=== PATIENT | female | born 1940 | race Caucasian/White ===

== ENCOUNTER 2025-05-09 08:13 | Day surgery (SDC) | payer MEDICARE, OTHER ==
[2025-05-07 12:09] VITALS: BMI 25.7
[2025-05-09] MEDS ORDERED: CEFAZOLIN 2 GM VIAL ONE (09:33)
[2025-05-09] MEDS ORDERED: Bupivacaine/Epinephrine 0.25% 30 ML VIAL ONE (09:33)
[2025-05-09] MEDS ORDERED: PROPOFOL 20 ML ONE (09:37)
[2025-05-09] MEDS ORDERED: Lidocaine 1% PF 5 ML VIAL ONE (09:38)
[2025-05-09] MEDS ORDERED: Rocuronium Bromide 10 MG/ML (10ML VIAL) ONE (09:38)
[2025-05-09] MEDS ORDERED: SUGAMMADEX SODIUM 200 MG/2 ML VIAL ONE (10:57)
[2025-05-09] MEDS ORDERED: Ondansetron PF 4 MG/2 ML Vial ONE (10:57)
== END 2025-05-09 12:48 | disposition home or self-care (01) ==
LOC: CSHSDC 08:13
PROVIDERS: ATTEND Surgery
PROC: 0FT44ZZ Resection of Gallbladder, Percutaneous Endoscopic Approach (ICD-10-PCS; principal; 2025-05-09)
DX: K80.12 Calculus of gallbladder with acute and chronic cholecystitis without obstruction (principal); I10 Essential (primary) hypertension; E78.5 Hyperlipidemia, unspecified; Z79.899 Other long term (current) drug therapy
CPT/HCPCS: 47562; C9776; 88304; 88341; 88342; C1889; J2405; J2704; J3010; S2900